=== PATIENT | male | born 1970 | race American Indian/Alaskan Native ===

== ENCOUNTER 2017-10-28 14:27 | Emergency (ER) | payer SELFPAY ==
[2017-10-28 14:43] VITALS: BP 123/90
--- NOTE | 2017-10-28 17:02 | Emergency Department Report ---
ED Chest Pain HPI - General Chief Complaint: Chest Pain Stated Complaint: CHEST PAIN Time Seen by Provider: 10/28/17 16:35 Source: EMS Mode of arrival: Stretcher Limitations: No Limitations - History of Present Illness Initial Comments: 47 yo male with a past smoking as of umbilical hernia presents to hospital complaints of sudden onset of substernal chest pain while at work at 9:30 AM. Patient bent over and felt sudden substernal sharp chest pain that was worse with inspiration. Patient saw the nurse at his job received Motrin and omeprazole. While waiting to be evaluated patient states that his symptoms are complete resolved. He denied any nausea, vomiting, shortness of breath, or diaphoresis. Patient does not smoke cigarettes but does smoke black and milds. Denies cocaine abuse, current hypertension, recent travel, calf tenderness, history of PEs or DVT. - Related Data Previous Rx's Medication Instructions Recorded Last Taken Type Mag Hydrox/Aluminum Hyd/Simeth 20 ml PO QID PRN #1 bottle 10/28/17 Unknown Rx [Maalox Advanced Suspension] Ranitidine HCl [Zantac 150 MG TAB] 150 mg PO BID #30 tablet 10/28/17 Unknown Rx Allergies Allergy/AdvReac Type Severity Reaction Status Date / Time No Known Allergies Allergy Unverified 10/28/17 14:44 Heart Score - HEART Score History: Slightly suspicious EKG: Normal Age: < 45 Risk factors: No known risk factors Troponin: < normal limit HEART Score: 0 ED Review of Systems ROS: Stated complaint: CHEST PAIN Other details as noted in HPI Comment: All other systems reviewed and negative ED Past Medical Hx - Past Medical History Previous Medical History?: Yes Additional medical history: umbilical hernia - Surgical History Past Surgical History?: Yes Additional Surgical History: R. shoulder shoulder - Social History Smoking Status: Current Every Day Smoker Substance Use Type: Alcohol, Marijuana - Medications Home Medications: Home Medications Medication Instructions Recorded Confirmed Last Taken Type Mag Hydrox/Aluminum Hyd/Simeth 20 ml PO QID PRN #1 bottle 10/28/17 Unknown Rx [Maalox Advanced Suspension] Ranitidine HCl [Zantac 150 MG TAB] 150 mg PO BID #30 tablet 10/28/17 Unknown Rx ED Physical Exam - General Limitations: No Limitations - Other Other exam information: General: No limitations, patient is alert in no acute distress Head exam: Atraumatic, normocephalic Eyes exam: Normal appearance ENT: Moist mucous membrane, normal oropharynx Neck exam: Normal inspection, full range of motion, no meningismus nontender Respiratory exam: Clear to auscultation bilateral, no wheezes, rales, crackles Cardiovascular: Normal rate and rhythm, normal heart sounds, chest wall nontender. Abdomen: Soft, nondistended, and nontender, with normal bowel sounds, no rebound, or guarding. Reducible nontender umbilical hernia Extremity: Full range of motion normal inspection no deformity, no calf tenderness or edema Back: Normal Inspection, full range of motion, no tenderness Neurologic: Alert, oriented x3, cranial nerves intact, no motor or sensory deficit Psychiatric: normal affect, normal mood Skin: Warm, dry, intact ED Course Vital Signs 10/28/17 14:37 Temperature 98.6 F Pulse Rate 85 Respiratory 16 Rate Blood Pressure 123/90 O2 Sat by Pulse 98 Oximetry QUIANA score - Quiana Score Age > 65: (0) No Aspirin use within the Past 7 Days: (0) No 3 or more CAD Risk Factors: (0) No 2 or more Angina events in past 24 hrs: (0) No Known CAD with more than 50% Stenosis: (0) No Elevated Cardiac Markers: (0) No ST Deviation Greater than 0.5mm: (0) No QUIANA Score: 0 ED Medical Decision Making - EKG Data -: EKG Interpreted by Me EKG shows normal: sinus rhythm, axis (qrs 52), QRS complexes (qrsd 87), ST-T waves (no stemi/t inv) Rate: normal (64) - EKG Data When compared to previous EKG there are: previous EKG unavailable - Medical Decision Making Patient asymptomatic in the ED. States he does have a history of GERD. Pain is either muscular skeletal or secondary to indigestion/gas. Patient prescribed medications for indigestion/dyspepsia and encouraged to take all her see me for pain. PMD follow-up recommended. - Differential Diagnosis MT, PE, unstable, GERD, Critical Care Time: No Critical care attestation.: If time is entered above; I have spent that time in minutes in the direct care of this critically ill patient, excluding procedure time. ED Disposition Clinical Impression: Atypical chest pain, GERD (gastroesophageal reflux disease), Umbilical hernia Disposition: TO HOME OR SELFCARE Is pt being admited?: No Does the pt Need Aspirin: No Condition: Stable Instructions: Chest Pain (ED), Umbilical Hernia (ED), Gastroesophageal Reflux Disease (ED) Additional Instructions: Take the medication as described. Follow-up with either resource provided. Return if symptoms worsen as indicated by a discharge instructions. Prescriptions: Mag Hydrox/Aluminum Hyd/Simeth [Maalox Advanced Suspension] 20 ml PO QID PRN #1 bottle PRN Reason: Indigestion Ranitidine HCl [Zantac 150 MG TAB] 150 mg PO BID #30 tablet Referrals: SHANA CHURCH MD [Staff Physician] - 3-5 Days [facility] [Provider Group] - 3-5 Days Forms: Work/School Release Form(ED) Time of Disposition: 17:00
== END 2017-10-28 17:12 | disposition home or self-care (01) ==
LOC: ED 14:27
DX: K21.9 Gastro-esophageal reflux disease without esophagitis (principal); K42.9 Umbilical hernia without obstruction or gangrene; F17.200 Nicotine dependence, unspecified, uncomplicated; F12.10 Cannabis abuse, uncomplicated
CPT/HCPCS: 93005; 93010; 99283